=== PATIENT | female | born 2000 | race African-American/Black ===

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

== ENCOUNTER 2020-05-25 17:56 | Inpatient (IN) ==
[2020-05-25] MEDS ORDERED: NS 0.9% 1000 ml BAG 1,000 ML IV ONE ×2 (19:31→23:14)
[2020-05-25] MEDS ORDERED: Ondansetron 4 mg VIAL 2 MG/ML 2 ml VIAL IV ONE (19:31)
[2020-05-25 22:09] LABS: Hematocrit 23 % (35-47); Hemoglobin 7.6 g/dL (12.0-16.0); Mean Corpuscular HGB Conc 33 g/dL (31-36); Mean Corpuscular Hemoglobin 28 pg (27-31); Mean Corpuscular Volume 83 fL (80-97); Mean Platelet Volume 8.4 fL (7.4-10.4); Platelet Count 597 10^3/uL (150-450); Red Blood Count 2.75 10^6 /uL (3.70-4.87); Red Cell Distribution Width 17 % (10-15); White Blood Count 27.2 10^3/uL (3.5-10.8)
[2020-05-25 22:14] LABS: INR 1.27 (0.82-1.09)
[2020-05-25 22:20] LABS: Albumin 4.6 g/dL (3.2-5.2); Anion Gap 10 mmol/L (2-11); CO2 Carbon Dioxide 21 mmol/L (22-32); Calcium 10.1 mg/dL (8.6-10.3); Chloride 108 mmol/L (101-111); Potassium 3.6 mmol/L (3.5-5.0); Sodium 139 mmol/L (135-145)
[2020-05-25 22:26] LABS: ALT 12 U/L (7-52); AST 26 U/L (13-39); Albumin/Globulin Ratio 1.6 (1-3); Alkaline Phosphatase 60 U/L (34-104); BUN/Creatinine Ratio 20.9 (8-20); Blood Urea Nitrogen 9 mg/dL (6-24); EGFR African American 226.5 (>60); EGFR Non-African American 187.2 (>60); Globulin 2.8 g/dL (2-4); Glucose 109 mg/dL (70-100); Total Protein 7.4 g/dL (6.4-8.9)
[2020-05-25 22:28] LABS: Troponin I 0.01 ng/mL (<0.03)
[2020-05-25 22:32] LABS: HCG Pregnancy < 0.60 mIU/mL
[2020-05-25 22:35] LABS: Influenza A Molecular Negative (Negative); Influenza B Molecular Negative (Negative); Polychromasia 1+
[2020-05-25 22:36] LABS: Sickle Cells 1+
[2020-05-25 22:38] LABS: ABS Basophils 0.3 10^3/ul (0-0.2); ABS Eosinophils 0.1 10^3/ul (0-0.6); ABS Lymphocytes 6.6 10^3/ul (1.0-4.8); ABS Monocytes 1.2 10^3/ul (0-0.8); ABS Nucleated RBC 0.4 10^3/ul; Eosinophil % 0.3 %; Lymphocyte % 24.3 %; Nucleated Red Blood Cells % 1.4
[2020-05-26] MEDS: NS 0.9% 1000 ml BAG 1,000 ML IV SCH ×3 (05:08→23:44)
[2020-05-26] MEDS: Heparin 5000 UNITS/ML 1 mL VIAL SUBCUT SCH ×3 (08:13→21:03)
[2020-05-26] MEDS ORDERED: NS 0.9% 1000 ml BAG 1,000 ML IV SCH (10:15)
[2020-05-26] MEDS ORDERED: NS 0.9% 1000 ml BAG 1,000 ML IV ONE (12:03)
[2020-05-26] MEDS ORDERED: Morphine 2 MG/ML SYRINGE IV ONE (20:05)
[2020-05-26] MEDS: GLUTAMINE PO SCH (21:05)
[2020-05-27] MEDS: Heparin 5000 UNITS/ML 1 mL VIAL SUBCUT SCH ×3 (05:42→20:23)
[2020-05-27 06:47] LABS: Immature Retic Fraction 0.73; RBC Retic Count 2.57 10^6/uL (3.70-4.87); Red Blood Count 2.57 10^6 /uL (3.70-4.87)
[2020-05-27 06:55] LABS: ABS Nucleated RBC 0.4 10^3/ul; Corrected Retic Count 4.1 % (0.5-1.5); Hematocrit 22 % (35-47); Hematocrit for Retic CNT 22 % (35-47); Hemoglobin 7.3 g/dL (12.0-16.0); Mean Corpuscular HGB Conc 33 g/dL (31-36); Mean Corpuscular Hemoglobin 28 pg (27-31); Mean Corpuscular Volume 85 fL (80-97); Mean Platelet Volume 8.3 fL (7.4-10.4); Platelet Count 606 10^3/uL (150-450); Red Cell Distribution Width 17 % (10-15); White Blood Count 17.7 10^3/uL (3.5-10.8)
[2020-05-27 06:58] LABS: Albumin/Globulin Ratio 1.4 (1-3); BUN/Creatinine Ratio 8.1 (8-20); EGFR African American 269.4 (>60); EGFR Non-African American 222.7 (>60); Globulin 2.9 g/dL (2-4); Potassium 3.4 mmol/L (3.5-5.0); Total Bilirubin 1.3 mg/dL (0.2-1.0); Total Protein 6.9 g/dL (6.4-8.9)
[2020-05-27] MEDS: GLUTAMINE PO SCH ×2 (08:45→21:34)
[2020-05-27] MEDS: NS 0.9% 1000 ml BAG 1,000 ML IV SCH (08:46)
[2020-05-27 09:39] LABS: Acanthocytes 1+; Polychromasia 2+
[2020-05-27] MEDS ORDERED: Potassium Chlor 10 meq TAB PO ONE (19:00)
[2020-05-27 21:24] LABS: Urine Appearance Clear; Urine Bilirubin Negative (Negative); Urine Blood Negative (Negative); Urine Color Yellow; Urine Glucose Negative (Negative); Urine Ketones Trace (Negative); Urine Nitrite Negative (Negative); Urine Protein Negative (Negative); Urine Specific Gravity 1.006 (1.002-1.030); Urine Urobilinogen Negative (Negative)
[2020-05-28] MEDS: NS 0.9% 1000 ml BAG 1,000 ML IV SCH (04:29)
[2020-05-28] MEDS: Heparin 5000 UNITS/ML 1 mL VIAL SUBCUT SCH ×3 (05:48→21:30)
[2020-05-28 07:05] LABS: Corrected Retic Count 4.2 % (0.5-1.5); Hematocrit 23 % (35-47); Hematocrit for Retic CNT 23 % (35-47); Hemoglobin 7.6 g/dL (12.0-16.0); Immature Retic Fraction 0.63; Mean Corpuscular HGB Conc 34 g/dL (31-36); Mean Corpuscular Hemoglobin 29 pg (27-31); Mean Corpuscular Volume 85 fL (80-97); Mean Platelet Volume 8.4 fL (7.4-10.4); Platelet Count 668 10^3/uL (150-450); RBC Retic Count 2.63 10^6/uL (3.70-4.87); Red Blood Count 2.63 10^6 /uL (3.70-4.87); Red Cell Distribution Width 16 % (10-15); White Blood Count 18.6 10^3/uL (3.5-10.8)
[2020-05-28] MEDS: GLUTAMINE PO SCH ×2 (07:43→19:30)
[2020-05-28] MEDS: Magnesium Hydroxide LIQ 30 ML UDC PO PRN (14:33)
[2020-05-28 14:59] LABS: Calcium 9.2 mg/dL (8.6-10.3); Magnesium 1.9 mg/dL (1.9-2.7); Potassium 3.8 mmol/L (3.5-5.0)
[2020-05-28 15:01] LABS: Albumin/Globulin Ratio 1.3 (1-3); BUN/Creatinine Ratio 11.8 (8-20); EGFR Non-African American 245.5 (>60); Globulin 3.2 g/dL (2-4); Total Protein 7.2 g/dL (6.4-8.9)
[2020-05-29] MEDS: NS 0.9% 1000 ml BAG 1,000 ML IV SCH (04:28)
[2020-05-29 05:43] LABS: Hematocrit for Retic CNT 22 % (35-47); Immature Retic Fraction 0.66; RBC Retic Count 2.61 10^6/uL (3.70-4.87)
[2020-05-29] MEDS: Heparin 5000 UNITS/ML 1 mL VIAL SUBCUT SCH (06:02)
[2020-05-29 06:05] LABS: Albumin 3.9 g/dL (3.2-5.2); Albumin/Globulin Ratio 1.2 (1-3); BUN/Creatinine Ratio 18.2 (8-20); Calcium 9.3 mg/dL (8.6-10.3); EGFR African American 307.4 (>60); EGFR Non-African American 254.1 (>60); Globulin 3.2 g/dL (2-4); Potassium 3.8 mmol/L (3.5-5.0); Total Bilirubin 0.7 mg/dL (0.2-1.0); Total Protein 7.1 g/dL (6.4-8.9)
[2020-05-29] MEDS: Magnesium Hydroxide LIQ 30 ML UDC PO PRN (10:11)
[2020-05-29 10:39] LABS: C Reactive Protein 138.37 mg/L (<8.01)
[2020-05-29 11:00] VITALS: BP 122/69
[2020-05-29] MEDS ORDERED: NS 0.45% 1000 ml BAG 1,000 ML IV SCH (11:00)
[2020-05-29] MEDS: GLUTAMINE PO SCH (11:01)
[2020-05-29 12:51] LABS: Erythrocyte Sed Rate 68 mm/Hr (0-19)
[2020-05-29] MEDS ORDERED: Enoxaparin 40 MG/0.4 ML SYR SUBCUT SCH (18:00)
== END 2020-05-29 12:30 | disposition home or self-care (01) | DRG 662 ==
LOC: ED 17:56 → MED 05-26 04:57
PROVIDERS: ADMIT Internal Medicine; ATTEND Internal Medicine